=== PATIENT | female | born 1925 | race Caucasian/White ===

== ENCOUNTER 2017-06-05 12:13 | Observation (INO) | payer OTHER ==
[2017-06-05 12:30] VITALS: BMI 33.4
[2017-06-05 13:02] LABS: BASOPHIL 0.7 % (0-2.0); EOSINOPHIL 1.4 % (0-4.5); MCH 29.9 pg (25.7-33.7); MCHC 32.9 g/dl (32.0-36.0); MEAN PLT VOLUME 8.8 fl (7.5-11.1); NEUTROPHILS 72.6 % (42.8-82.8); PLATELET COUNT 201 K/MM3 (134-434); RDW 14.4 % (11.6-15.6)
--- NOTE | 2017-06-05 13:02 | PDOC ---
Attending Attestation - Resident Resident Name: Juan Carrillo - ED Attending Attestation I have performed the following: I have examined & evaluated the patient, The case was reviewed & discussed with the resident, I agree w/resident's findings & plan, Exceptions are as noted - HPI HPI: 06/05/17 13:00 Agree with the resident's HPI as documented in the electronic medical record. - Physicial Exam PE: 06/05/17 13:00 Agree with the resident's physical examination as documented in the electronic medical record. - Medical Decision Making 06/05/17 13:01 89-year-old female with history of Alzheimer's and atrial fibrillationnot on anticoagulants, [facility] resident who presents to the emergency department following a fall during the night with external signs of head trauma and a subsequent syncopal episode this morning. History is limited due to patient's baseline mental status however currently her GCS is 15. Differential diagnosis includes but is not limited to: Traumatic brain injury, contusion, cervical spine injury, cardiac arrhythmia, electrolyte abnormality, infection (pneumonia versus UTI), dehydration, toxic/metabolic derangement. Plan: 1. CT head and cervical spine 2. EKG 3. Labs 4. Chest x-ray 5. Urine analysis 6. Observe and reevaluate <Salome Lui - Last Filed: 06/05/17 13:00> - Resident Resident Name: Juan Carrillo <Juan Carrillo - Last Filed: 06/05/17 16:43> *DC/Admit/Observation/Transfer <Salome Lui - Last Filed: 06/05/17 13:00> - Discharge Dispostion Admit: Yes - Attestations Physician Attestion: 06/05/17 16:41 I, Dr. Juan Carrillo, attest that this document has been prepared under my direction and personally reviewed by me in its entirety. I further attest, that it accurately reflects all work, treatment, procedures and medical decision -making performed by me. <Juan Carrillo - Last Filed: 06/05/17 16:43> Diagnosis at time of Disposition: Syncope Qualifiers: Syncope type: unspecified Qualified Code(s): R55 - Syncope and collapse - Discharge Dispostion Condition at time of disposition: Improved - Patient Instructions - Post Discharge Activity
[2017-06-05 13:26] LABS: ALBUMIN 3.7 g/dl (3.4-5.0); ANION GAP 6 (8-16); BILIRUBIN,TOTAL 0.8 mg/dL (0.2-1.0); CALCIUM 8.9 mg/dL (8.5-10.1); CO2 31 mmol/L (21-32); CREATININE 0.7 mg/dL (0.55-1.02); GLUCOSE,RANDOM 89 mg/dL (74-106); SGOT/AST 20 U/L (15-37); SGPT/ALT 29 U/L (12-78); TOT PROT 7.1 g/dl (6.4-8.2)
[2017-06-05 13:27] LABS: ALK PHOS 41 U/L (45-117)
[2017-06-05 13:29] LABS: TROPONIN I 0.03 ng/ml (0.00-0.05)
[2017-06-05 13:31] LABS: INR 1.12 (0.82-1.09); PROTHROMBIN TIME (PATIENT) 12.4 SEC (9.98-11.88)
--- NOTE | 2017-06-05 13:42 | PDOC ---
History of Present Illness - General Chief Complaint: Syncope/Near Syncope Stated Complaint: Syncope/Near Syncope Time Seen by Provider: 06/05/17 12:19 - History of Present Illness Initial Comments: 06/05/17 13:33 Ms. Hi is a 89 yo F with h/o A-fib, HTN, and Alzheimers dz. who presents with head trauma following a fall. Pt. has baseline dementia and report was obtained via EMS. Per EMS, Ms. Hi was ambulating this morning at 0130, when she slipped and fell in the bathroom. The fall was unwitnessed and she denied LOC, injury, or bleeding. She does not recall the position of landing or the reason she fell. She was assisted to bed by the nursing staff at her resident [facility] facility ( [facility]). At 1000 AM she was assisted out of bed and momentarily lost consciousness for 30-40 seconds. Per EMS, nursing staff did not observe convulsions or direct head trauma. The fall was controlled. Complained of mild neck stiffness. Pt. denies h/o syncope, or triggers of syncope. Pt. denied ISBELL, N/V, fevers/chills, dizziness, weakness, blurry vision, SOB, chest pain, back pain, urinary complaints or GI complaints. Currently not on anticoagulation therapy. Remainder of history was limited d/ t baseline dementia. Past History - Past Medical History Allergies/Adverse Reactions: Allergies Allergy/AdvReac Type Severity Reaction Status Date / Time IV CONTRAST Allergy Uncoded 06/05/17 12:30 Home Medications: Ambulatory Orders Amlodipine Besylate [Norvasc -] 5 mg PO DAILY 08/17/16 Aspirin [ASA -] 81 mg PO DAILY 08/17/16 Donepezil HCl [Aricept -] 10 mg PO DAILY 08/17/16 Nystatin Cream [Mycostatin Cream -] 1 applic TP DAILY 08/17/16 Dementia: Yes HTN: Yes - Psycho/Social/Smoking Cessation Hx Anxiety: No Suicidal Ideation: No Smoking History: Never smoked Have you smoked in the past 12 months: No Information on smoking cessation initiated: No Hx Alcohol Use: No Drug/Substance Use Hx: No Substance Use Type: None Review of Systems - Review of Systems Comments:: 06/05/17 13:43 GENERAL/CONSTITUTIONAL: No fever or chills. No weakness. HEAD, EYES, EARS, NOSE AND THROAT: No change in vision. No ear pain or discharge. No sore throat. CARDIOVASCULAR: No chest pain or shortness of breath RESPIRATORY: No cough, wheezing, or hemoptysis. GASTROINTESTINAL: No nausea, vomiting, diarrhea or constipation. GENITOURINARY: No dysuria, frequency, or change in urination. MUSCULOSKELETAL: No joint or muscle swelling or pain. No neck or back pain. SKIN: No rash NEUROLOGIC: + neck stiffness. No headache, vertigo, loss of consciousness, or change in strength/sensation. ENDOCRINE: No increased thirst. No abnormal weight change HEMATOLOGIC/LYMPHATIC: No anemia, easy bleeding, or history of blood clots. ALLERGIC/IMMUNOLOGIC: No hives or skin allergy. *Physical Exam - Vital Signs Last Vital Signs Temp Pulse Resp BP Pulse Ox 98.4 F 50 L 18 133/52 97 06/05/17 12:17 06/05/17 12:17 06/05/17 12:17 06/05/17 12:17 06/05/17 12:59 - Physical Exam Comments: 06/05/17 13:44 GENERAL: Awake, alert, oriented to person and place. in no acute distress HEAD: + Ecchmyosis over right superior orbit. Normocephalic. EYES: Right superior orbit TTP. PERRLA, EOMI, sclera anicteric, conjunctiva clear. ENT: Absent septal hematoma, septal deviation or perforation. Auricles normal inspection, hearing grossly normal, nares patent, oropharynx clear without exudates. Moist mucosa. Absent tooth fracture or tongue laceration. NECK: Normal ROM, supple, no lymphadenopathy, JVD, or masses LUNGS: No distress, speaks full sentences, clear to auscultation bilaterally HEART: Irregular rate and rhythm, normal S1 and S2, no murmurs, rubs or gallops , peripheral pulses normal and equal bilaterally. ABDOMEN: Soft, nontender, normoactive bowel sounds. No guarding, no rebound. No masses EXTREMITIES: Normal inspection, Normal range of motion, no edema. No clubbing or cyanosis. NEUROLOGICAL: Cranial nerves II through XII grossly intact. Normal speech, normal gait, no focal sensorimotor deficits SKIN: Warm, Dry, normal turgor, no rashes or lesions noted. ED Treatment Course - LABORATORY CBC & Chemistry Diagram: 06/05/17 12:50 06/05/17 12:50 - ADDITIONAL ORDERS Additional order review: 06/05/17 12:50 RBC 4.25 MCV 91.0 MCHC 32.9 RDW 14.4 MPV 8.8 Neutrophils % 72.6 Lymphocytes % 17.6 Monocytes % 7.7 Eosinophils % 1.4 Basophils % 0.7 - RADIOLOGY Radiology Studies Ordered: Category Date Time Status CERVICAL SPINE CT W/O CONTR [CT] Stat CT Scan 06/05/17 12:[address] WITHOUT CONTRAST [CT] Stat CT Scan 06/05/17 12:33 Completed CXRPORT [CHEST X-RAY PORTABLE*] [RAD] Stat Radiology 06/05/17 12:47 Completed Medical Decision Making - Medical Decision Making 06/05/17 13:48 89 yo F with h/o Alzheimers, A-fib, and HTN who presents following recent fall and head trauma. Pt. currently stable and asymptomatic. Mild TTP and ecchymosis present over right superior orbit. Given pt. age, unwitnessed fall, and recent syncopal event there is a concern for syncope. Pt. is bradycardic, and in no respiratory distress, therefore PE is unlikely. D/t to pt risk factors, h/o Afib , and bradycardia there is a suspicion for cardiogenic syncope. There is concern for hematoma and/or SAH in elderly pt. following head trauma. Fall could be attributed to recent infection and altered mental status. R/O pyelonephritis/cystitis. ED course: CBC, CMP, PT/INR UA CXR EKG CT head CT C spine 06/05/17 13:55 CBC- WNlL 06/05/17 14:40 CXR~unremarkable CT HEAD~ Unremarkable. No signs of ischemia, hemmorrhage, or mass CT C-SPINE~ Unremarkable. No signs / evidence of fracture. *DC/Admit/Observation/Transfer Diagnosis at time of Disposition: Syncope Qualifiers: Syncope type: unspecified Qualified Code(s): R55 - Syncope and collapse - Discharge Dispostion Condition at time of disposition: Improved Admit: Yes - Referrals Referrals: Bran Maki [Primary Care Provider] - - Attestations Physician Attestion: 06/05/17 16:12 I, Dr. Juan Carrillo, attest that this document has been prepared under my direction and personally reviewed by me in its entirety. I further attest, that it accurately reflects all work, treatment, procedures and medical decision -making performed by me.
--- NOTE | 2017-06-05 20:15 | HP ---
Admitting History and Physical - Primary Care Physician PCP: Soni Naranjo - Admission Chief Complaint: FALL History of Present Illness: Ms. Hi is a 89 yo F with h/o A-fib, HTN, and Alzheimers dz. who presents with head trauma following a fall. Pt. has baseline dementia and report was obtained via EMS. Per EMS, Ms. Hi was ambulating this morning at 0130, when she slipped and fell in the bathroom. The fall was unwitnessed and she denied LOC, injury, or bleeding. She does not recall the position of landing or the reason she fell. She was assisted to bed by the nursing staff at her resident [place] [facility] ( [facility]). At 1000 AM she was assisted out of bed and momentarily lost consciousness for 30-40 seconds. Per EMS, nursing staff did not observe convulsions or direct head trauma. The fall was controlled. Complained of mild neck stiffness. Pt. denies h/o syncope, or triggers of syncope. Pt. denied ISBELL, N/V, fevers/chills, dizziness, weakness, blurry vision, SOB, chest pain, back pain, urinary complaints or GI complaints. Currently not on anticoagulation therapy. Remainder of history was limited d/ t baseline dementia. TOOK ABOVE HISTORY FROM ER RECORDS PATIENT HAS DEMENTIA - Past Medical History Cardiovascular: Yes: AFIB, HTN - Smoking History Smoking history: Never smoked Have you smoked in the past 12 months: No - Alcohol/Substance Use Hx Alcohol Use: No Home Medications - Allergies Allergies/Adverse Reactions: Allergies Allergy/AdvReac Type Severity Reaction Status Date / Time Iodinated Contrast Media - Allergy Verified 06/05/17 20:20 Oral and IV CONTRAST Allergy Uncoded 06/05/17 12:30 - Home Medications Home Medications: Ambulatory Orders Amlodipine Besylate [Norvasc -] 5 mg PO DAILY 08/17/16 Donepezil HCl [Aricept -] 10 mg PO DAILY 08/17/16 Acetaminophen [Tylenol] 650 mg PO BID PRN 06/05/17 Atorvastatin Ca [Lipitor] 10 mg PO DAILY 06/05/17 Escitalopram Oxalate [Lexapro -] 10 mg PO DAILY 06/05/17 Physical Examination Vital Signs: Vital Signs Temperature 98.4 F 06/05/17 18:55 Pulse Rate 50 L 06/05/17 18:55 Respiratory Rate 20 06/05/17 18:55 Blood Pressure 151/53 06/05/17 18:55 O2 Sat by Pulse Oximetry (%) 97 06/05/17 17:39 Constitutional: Yes: No Distress HENT: Yes: Other (bruise R forehead and around R eye and left eye) Neck: Yes: Supple Cardiovascular: Yes: Regular Rate and Rhythm Respiratory: Yes: CTA Bilaterally Gastrointestinal: Yes: Normal Bowel Sounds Extremities: Yes: WNL Edema: No Neurological: Yes: Alert Problem List - Problems (1) Syncope Code(s): R55 - SYNCOPE AND COLLAPSE Qualifiers: Syncope type: unspecified Qualified Code(s): R55 - Syncope and collapse (2) Dementia Assessment/Plan: on meds stable Code(s): F03.90 - UNSPECIFIED DEMENTIA WITHOUT BEHAVIORAL DISTURBANCE Qualifiers: Dementia type: Alzheimer's disease Alzheimer's disease onset: unspecified onset Dementia behavioral disturbance: without behavioral disturbance Qualified Code(s): G30.9 - Alzheimer's disease, unspecified; F02.80 - Dementia in other diseases classified elsewhere without behavioral disturbance (3) HTN (hypertension) Assessment/Plan: on meds stable Code(s): I10 - ESSENTIAL (PRIMARY) HYPERTENSION Qualifiers: Hypertension type: essential hypertension Qualified Code(s): I10 - Essential (primary) hypertension (4) Hypercholesterolemia Assessment/Plan: on meds Code(s): E78.00 - PURE HYPERCHOLESTEROLEMIA, UNSPECIFIED (5) Right bundle branch block (RBBB) Assessment/Plan: cardiology on board Code(s): I45.10 - UNSPECIFIED RIGHT BUNDLE-BRANCH BLOCK Assessment/Plan Laboratory Tests 06/05/17 06/05/17 06/05/17 12:50 12:50 12:50 WBC 9.0 RBC 4.25 Hgb 12.7 Hct 38.6 MCV 91.0 MCH 29.9 MCHC 32.9 RDW 14.4 Plt Count 201 MPV 8.8 Neutrophils % 72.6 Lymphocytes % 17.6 Monocytes % 7.7 Eosinophils % 1.4 Basophils % 0.7 INR 1.12 Sodium 138 Potassium 4.4 Chloride 101 Carbon Dioxide 31 Anion Gap 6 L BUN 19 H Creatinine 0.7 Creat Clearance w eGFR > 60 Random Glucose 89 Calcium 8.9 Total Bilirubin 0.8 AST 20 ALT 29 Alkaline Phosphatase 41 L Creatine Kinase Troponin I Total Protein 7.1 Albumin 3.7 Blood Type Antibody Screen 06/05/17 06/05/17 12:50 12:59 WBC RBC Hgb Hct MCV MCH MCHC RDW Plt Count MPV Neutrophils % Lymphocytes % Monocytes % Eosinophils % Basophils % INR Sodium Potassium Chloride Carbon Dioxide Anion Gap BUN Creatinine Creat Clearance w eGFR Random Glucose Calcium Total Bilirubin AST ALT Alkaline Phosphatase Creatine Kinase 64 Troponin I 0.03 Total Protein Albumin Blood Type A POSITIVE Antibody Screen Negative Active Medications Generic Name Dose Route Start Last Admin Trade Name Freq PRN Reason Stop Dose Admin Alprazolam 0.25 mg 06/05/17 21:21 06/06/17 01:38 Xanax - PO 0.25 mg Q6H PRN Administration ANXIETY Amlodipine Besylate 5 mg 06/06/17 10:00 06/06/17 10:00 Norvasc - PO 5 mg DAILY PEGGY Administration Atorvastatin Calcium 10 mg 06/06/17 10:00 06/06/17 10:00 Lipitor - PO 10 mg DAILY PEGGY Administration Donepezil HCl 10 mg 06/06/17 10:00 06/06/17 10:00 Aricept - PO 10 mg DAILY PEGGY Administration Escitalopram Oxalate 10 mg 06/06/17 10:00 06/06/17 10:00 Lexapro - PO 10 mg DAILY PEGGY Administration
[2017-06-05] MEDS ORDERED: ALPRAZolam 0.25 MG TABLET PO PRN (21:21)
[2017-06-06 08:03] LABS: URINE APPEARANCE CLEAR; URINE BILIRUBIN NEGATIVE (NEGATIVE); URINE BLOOD NEGATIVE (NEGATIVE); URINE COLOR LTYELLOW; URINE GLUCOSE (UA) NEGATIVE (NEGATIVE); URINE KETONE TRACE (NEGATIVE); URINE LEUK ESTERASE NEGATIVE (NEGATIVE); URINE NITRITE NEGATIVE (NEGATIVE); URINE PROTEIN NEGATIVE (NEGATIVE)
[2017-06-06] MEDS: ATORVASTATIN CA 10 MG TABLET (FP) PO SCH (10:00)
[2017-06-06] MEDS: DONEPEZIL HCL 10 MG TABLET (FP) PO SCH (10:00)
[2017-06-06] MEDS: ESCITALOPRAM OXALATE 10 MG TABLET (FP) PO SCH (10:00)
[2017-06-06] MEDS: amLODIPine BESYLATE 5 MG TABLET (FP) PO SCH (10:00)
--- NOTE | 2017-06-06 10:14 | CON.NEURO ---
Consult Consult Specialty:: Neurology Referred by:: brandon Reason for Consultation:: syncope - History of Present Illness Chief Complaint: syncope History of Present Illness: Ms. Hi is a 89 yo F with h/o A-fib, HTN, and Alzheimers dz. who presents with head trauma following a fall. Pt. has baseline dementia and report was obtained via EMS. Per EMS, Ms. Hi was ambulating this morning at 0130, when she slipped and fell in the bathroom. The fall was unwitnessed and she denied LOC, injury, or bleeding. She does not recall the position of landing or the reason she fell. She was assisted to bed by the nursing staff at her resident [facility] ( [facility]). At 1000 AM she was assisted out of bed and momentarily lost consciousness for 30-40 seconds. Per EMS, nursing staff did not observe convulsions or direct head trauma. The fall was controlled. Complained of mild neck stiffness. Pt. denies h/o syncope, or triggers of syncope. Pt. denied ISBELL, N/V, fevers/chills, dizziness, weakness, blurry vision, SOB, chest pain, back pain, urinary complaints or GI complaints. Currently not on anticoagulation therapy. Remainder of history was limited d/ t baseline dementia. 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 Cardio/Vascular: Yes: AFIB, HTN ...: No - Alcohol/Substance Use Hx Alcohol Use: No - Smoking History Smoking history: Never smoked Have you smoked in the past 12 months: No Home Medications - Allergies Allergies/Adverse Reactions: Allergies Allergy/AdvReac Type Severity Reaction Status Date / Time Iodinated Contrast Media - Allergy Verified 06/05/17 20:20 Oral and IV CONTRAST Allergy Uncoded 06/05/17 12:30 - Home Medications Home Medications: Ambulatory Orders Amlodipine Besylate [Norvasc -] 5 mg PO DAILY 08/17/16 Donepezil HCl [Aricept -] 10 mg PO DAILY 08/17/16 Acetaminophen [Tylenol] 650 mg PO BID PRN 06/05/17 Atorvastatin Ca [Lipitor] 10 mg PO DAILY 06/05/17 Escitalopram Oxalate [Lexapro -] 10 mg PO DAILY 06/05/17 Physical Exam-Neuro Vital Signs: Vital Signs Temperature 97.5 F L 06/06/17 06:00 Pulse Rate 55 L 06/06/17 06:00 Respiratory Rate 16 06/06/17 06:00 Blood Pressure 150/57 06/06/17 06:00 O2 Sat by Pulse Oximetry (%) 97 06/05/17 23:00 Constitutional: Yes: Calm Neck: Yes: WNL Labs: INR, PTT INR 1.12 (0.82-1.09) 06/05/17 12:50 - Neuro Exam Level Of Consciousness: Yes: Alert (patient didn't respond to questioning though she was alert), Oriented to Person Eyes: Yes: PERRL Speech: Other (clear, though didn't wish to be bothered) Cranial Nerves II-XII Intact: Yes DTR's: 0 Left Achilles, 0 Right Achilles, 2+ Left Bicep, 2+ Right Bicep, 2+ Left Tricep, 2+ Right Tricep, 2+ Left Brachioradialis, 2+ Right Brachioradialis Babinski: Absent Movement Disorders: Other (none) Motor Strength: 5/5: Right Arm, Left Leg, Left Arm, Right Leg (not fully cooperative, but moves all limbs well) Gait: Deferred NIH Stroke Scale - Total Score NIH Stroke Scale Score: 0 Imaging - Results Cat Scan: Report Reviewed, Image Reviewed (atrophy; white matter ischemic changes; intracranial, intravascular calcifications; no acute infaraction, bleed or signs of trauma) Other: Report Reviewed (ct neck ok) Problem List - Problems (1) Syncope Code(s): R55 - SYNCOPE AND COLLAPSE Qualifiers: Syncope type: unspecified Qualified Code(s): R55 - Syncope and collapse Assessment/Plan I don't think that this event was likely neurogenic. I see no signs of acute infarction or tia. I don't see suggestion of seizure and the fall had no apparent neurologic sequellae. We'll sign off. No further inpatient workup recommended. I have no objection to discharge. Thank you.
--- NOTE | 2017-06-06 12:21 | CON.CARD ---
Consult Consult Specialty:: Cardiology Referred by:: Dr. Naranjo Reason for Consultation:: Cardiac evaluation - History of Present Illness Chief Complaint: Status fall with questiable syncope History of Present Illness: Patient is an 89 year old female form SNF with underlying history of paroxysmal atrial fibrillation currently appears to be in sinus rhythm with RBBB and organic brain syndrome/dementia (Alzheimers) who presents after a mechanical fall resulting in facial/head trauma. She has extensive echymosis around her orbits and nasal ridge. According to record she slipped and fell in the bathroom and the fall was unwitnessed. It does not appear that she had loss of consciousness. She was assisted to bed by the nursing staff the SNF. She had further event where she briefly may have lost consciousness. No seizure activity was noted. She denies chest pain, shortness of breath or palpitations. No fever or chills. No GI or urinary complaints. She was not on anticoagulation therapy. 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 Cardio/Vascular: Yes: AFIB (Paroxysmal), HTN ...: No - Alcohol/Substance Use Hx Alcohol Use: No - Smoking History Smoking history: Never smoked Have you smoked in the past 12 months: No Home Medications - Allergies Allergies/Adverse Reactions: Allergies Allergy/AdvReac Type Severity Reaction Status Date / Time Iodinated Contrast Media - Allergy Verified 06/05/17 20:20 Oral and IV CONTRAST Allergy Uncoded 06/05/17 12:30 - Home Medications Home Medications: Ambulatory Orders Amlodipine Besylate [Norvasc -] 5 mg PO DAILY 08/17/16 Donepezil HCl [Aricept -] 10 mg PO DAILY 08/17/16 Acetaminophen [Tylenol] 650 mg PO BID PRN 06/05/17 Atorvastatin Ca [Lipitor] 10 mg PO DAILY 06/05/17 Escitalopram Oxalate [Lexapro -] 10 mg PO DAILY 06/05/17 Family Disease History - Family Disease History Family History: Unable to Obtain Review of Systems - Review of Systems Cardiovascular: denies: Chest Pain, Palpitations, Shortness of Breath Respiratory: denies: Cough, Hemoptysis, Orthopnea, PND Gastrointestinal: denies: Abdominal Pain, Constipation, Diarrhea, Melena, Nausea , Rectal Bleeding, Vomiting Neurological: reports: Confusion, Syncope, Unsteady Gait. denies: Seizure Vital Signs: Vital Signs Temperature 97.8 F 06/06/17 10:00 Pulse Rate 58 L 06/06/17 10:00 Respiratory Rate 18 06/06/17 10:00 Blood Pressure 144/60 06/06/17 10:00 O2 Sat by Pulse Oximetry (%) 96 06/06/17 07:00 Respiratory: Yes: Diminished Gastrointestinal: Yes: Normal Bowel Sounds, Soft. No: Tenderness Cardiovascular: Yes: Regular Rate and Rhythm JVD: No Carotid Bruit: No PMI: Non-Displaced Heart Sounds: Yes: S1, S2 Murmur: Yes: Systolic Murmur, Grade 1 Edema: No - Other Data Labs, Other Data: INR, PTT INR 1.12 (0.82-1.09) 06/05/17 12:50 Laboratory Results - last 24 hr 06/06/17 06:45 Urine Color Ltyellow Urine Appearance Clear Urine pH 7.0 Urine Protein Negative Urine Glucose (UA) Negative Urine Ketones Trace H Urine Blood Negative Urine Nitrite Negative Urine Bilirubin Negative Urine Urobilinogen 2.0 H Ur Leukocyte Esterase Negative CBCD WBC 9.0 K/mm3 (4.0-10.0) 06/05/17 12:50 RBC 4.25 M/mm3 (3.60-5.2) 06/05/17 12:50 Hgb 12.7 GM/dL (10.7-15.3) 06/05/17 12:50 Hct 38.6 % (32.4-45.2) 06/05/17 12:50 MCV 91.0 fl (80-96) 06/05/17 12:50 MCHC 32.9 g/dl (32.0-36.0) 06/05/17 12:50 RDW 14.4 % (11.6-15.6) 06/05/17 12:50 Plt Count 201 K/MM3 (134-434) 06/05/17 12:50 MPV 8.8 fl (7.5-11.1) 06/05/17 12:50 CMP Sodium 138 mmol/L (136-145) 06/05/17 12:50 Potassium 4.4 mmol/L (3.5-5.1) 06/05/17 12:50 Chloride 101 mmol/L (98-107) 06/05/17 12:50 Carbon Dioxide 31 mmol/L (21-32) 06/05/17 12:50 Anion Gap 6 (8-16) L 06/05/17 12:50 BUN 19 mg/dL (7-18) H 06/05/17 12:50 Creatinine 0.7 mg/dL (0.55-1.02) 06/05/17 12:50 Creat Clearance w eGFR > 60 (>60) 06/05/17 12:50 Random Glucose 89 mg/dL (74-106) 06/05/17 12:50 Calcium 8.9 mg/dL (8.5-10.1) 06/05/17 12:50 Total Bilirubin 0.8 mg/dL (0.2-1.0) 06/05/17 12:50 AST 20 U/L (15-37) 06/05/17 12:50 ALT 29 U/L (12-78) 06/05/17 12:50 Alkaline Phosphatase 41 U/L (45-117) L 06/05/17 12:50 Total Protein 7.1 g/dl (6.4-8.2) 06/05/17 12:50 Albumin 3.7 g/dl (3.4-5.0) 06/05/17 12:50 CARDIAC ENZYMES Creatine Kinase 64 IU/L (26-192) 06/05/17 12:50 Troponin I 0.03 ng/ml (0.00-0.05) 06/05/17 12:50 Sinus rhythm with RBBB Echo: Pending Imaging - Results Chest X-ray: Report Reviewed (Unremarkable) Cat Scan: Report Reviewed (Head CT unremarkable) EKG: Report Reviewed Problem List - Problems (1) Dementia Code(s): F03.90 - UNSPECIFIED DEMENTIA WITHOUT BEHAVIORAL DISTURBANCE Qualifiers: Dementia type: Alzheimer's disease Alzheimer's disease onset: unspecified onset Dementia behavioral disturbance: without behavioral disturbance Qualified Code(s): G30.9 - Alzheimer's disease, unspecified; F02.80 - Dementia in other diseases classified elsewhere without behavioral disturbance (2) Syncope Code(s): R55 - SYNCOPE AND COLLAPSE Qualifiers: Syncope type: unspecified Qualified Code(s): R55 - Syncope and collapse (3) HTN (hypertension) Code(s): I10 - ESSENTIAL (PRIMARY) HYPERTENSION Qualifiers: Hypertension type: essential hypertension Qualified Code(s): I10 - Essential (primary) hypertension (4) Hypercholesterolemia Code(s): E78.00 - PURE HYPERCHOLESTEROLEMIA, UNSPECIFIED (5) Right bundle branch block (RBBB) Code(s): I45.10 - UNSPECIFIED RIGHT BUNDLE-BRANCH BLOCK Assessment/Plan 1. Mechanical fall and episode of possible syncope, etiology to be determined resulting in facial contusion 2. Organic brain syndrome/Alzheimer's dementia 3. Paroxysmal atrial fibrillation currently in sinus rhythm and RBBB 4. Hypertension PLAN: 1. Continue Norvasc as BP tolerated - uptitrate as tolerated 2. Continue Lipitor 3. Transthoracic echocardiography to assess LV/RV and valvular function 4. 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 Check TFT and lipid panel Further plans are to follow Saul Stafford MD
--- NOTE | 2017-06-06 16:11 | PN ---
Progress Note, Physician History of Present Illness: stable - Current Medication List Current Medications: Active Medications Alprazolam (Xanax -) 0.25 mg PO Q6H PRN PRN Reason: ANXIETY Last Admin: 06/06/17 01:38 Dose: 0.25 mg Amlodipine Besylate (Norvasc -) 5 mg PO DAILY [facility] Last Admin: 06/06/17 10:00 Dose: 5 mg Atorvastatin Calcium (Lipitor -) 10 mg PO DAILY [facility] Last Admin: 06/06/17 10:00 Dose: 10 mg Donepezil HCl (Aricept -) 10 mg PO DAILY [facility] Last Admin: 06/06/17 10:00 Dose: 10 mg Escitalopram Oxalate (Lexapro -) 10 mg PO DAILY [facility] Last Admin: 06/06/17 10:00 Dose: 10 mg - Objective Vital Signs: Vital Signs Temperature 97.8 F 06/06/17 10:00 Pulse Rate 58 L 06/06/17 10:00 Respiratory Rate 18 06/06/17 15:00 Blood Pressure 144/60 06/06/17 10:00 O2 Sat by Pulse Oximetry (%) 96 06/06/17 15:00 Constitutional: Yes: Calm HENT: Yes: Other (bruise around R eye AND LEFT EYE) Neck: Yes: Supple Cardiovascular: Yes: Regular Rate and Rhythm Respiratory: Yes: CTA Bilaterally Gastrointestinal: Yes: Normal Bowel Sounds Extremities: Yes: WNL Neurological: Yes: Alert Labs: INR, PTT INR 1.12 (0.82-1.09) 06/05/17 12:50 Problem List - Problems (1) Syncope Assessment/Plan: doing well tele monitoring cardiology on board monitpr bp continue home meds Code(s): R55 - SYNCOPE AND COLLAPSE Qualifiers: Syncope type: unspecified Qualified Code(s): R55 - Syncope and collapse (2) Dementia Assessment/Plan: on meds Code(s): F03.90 - UNSPECIFIED DEMENTIA WITHOUT BEHAVIORAL DISTURBANCE Qualifiers: Dementia type: Alzheimer's disease Alzheimer's disease onset: unspecified onset Dementia behavioral disturbance: without behavioral disturbance Qualified Code(s): G30.9 - Alzheimer's disease, unspecified; F02.80 - Dementia in other diseases classified elsewhere without behavioral disturbance
--- NOTE | 2017-06-06 16:49 | EKG ---
Test Reason : Blood Pressure : / mmHG Vent. Rate : 052 BPM Atrial Rate : 052 BPM P-R Int : 142 ms QRS Dur : 126 ms QT Int : 506 ms P-R-T Axes : -26 -18 021 degrees QTc Int : 470 ms SINUS BRADYCARDIA RIGHT BUNDLE BRANCH BLOCK MINIMAL VOLTAGE CRITERIA FOR LVH, MAY BE NORMAL VARIANT ABNORMAL ECG WHEN COMPARED WITH ECG OF 20-OCT-2002 11:14, VENT. RATE HAS DECREASED BY 44 BPM RIGHT BUNDLE BRANCH BLOCK IS NOW PRESENT CRITERIA FOR INFERIOR INFARCT ARE NO LONGER PRESENT REPEAT INDICATED Confirmed by ABDULKADIR MARTELL MD ([id number] on 06/06/2017 4:48:43 PM Referred By: Confirmed By:ABDULKADIR MARTELL MD
[2017-06-07] MEDS: DONEPEZIL HCL 10 MG TABLET (FP) PO SCH (09:21)
[2017-06-07] MEDS: ATORVASTATIN CA 10 MG TABLET (FP) PO SCH (09:21)
[2017-06-07] MEDS: ESCITALOPRAM OXALATE 10 MG TABLET (FP) PO SCH (09:21)
[2017-06-07] MEDS: amLODIPine BESYLATE 5 MG TABLET (FP) PO SCH ×2 (09:22→10:00)
[2017-06-07] MEDS ORDERED: ASPIRIN COATED 81 MG TABLET.EC PO SCH (10:00)
--- NOTE | 2017-06-07 12:04 | DS ---
Physical Examination Vital Signs: Vital Signs Temperature 98.4 F 06/07/17 10:00 Pulse Rate 60 06/07/17 10:00 Respiratory Rate 20 06/07/17 10:00 Blood Pressure 134/49 06/07/17 10:00 O2 Sat by Pulse Oximetry (%) 96 06/06/17 21:11 Constitutional: Yes: No Distress HENT: Yes: Other (bruises on face healing) Cardiovascular: Yes: Regular Rate and Rhythm Respiratory: Yes: CTA Bilaterally Gastrointestinal: Yes: Normal Bowel Sounds Extremities: Yes: WNL Neurological: Yes: Alert Discharge Summary Reason For Visit: SYNCOPE Current Active Problems Dementia (Acute) HTN (hypertension) (Acute) Hypercholesterolemia (Acute) Right bundle branch block (RBBB) (Acute) Syncope (Acute) Condition: Improved - Home Medications Comprehensive Discharge Medication List: Ambulatory Orders Amlodipine Besylate [Norvasc -] 5 mg PO DAILY 08/17/16 Donepezil HCl [Aricept -] 10 mg PO DAILY 08/17/16 Acetaminophen [Tylenol] 650 mg PO BID PRN 06/05/17 Atorvastatin Ca [Lipitor] 10 mg PO DAILY 06/05/17 Escitalopram Oxalate [Lexapro -] 10 mg PO DAILY 06/05/17 dc when cleared by cardiology
--- NOTE | 2017-06-07 12:18 | PN ---
Progress Note, Physician History of Present Illness: No further falls, denies near or true syncope. No events on telemetry. - Current Medication List Current Medications: Active Medications Alprazolam (Xanax -) 0.25 mg PO Q6H PRN PRN Reason: ANXIETY Last Admin: 06/06/17 01:38 Dose: 0.25 mg Amlodipine Besylate (Norvasc -) 5 mg PO DAILY [facility] Last Admin: 06/07/17 10:00 Dose: Not Given Aspirin (Ecotrin -) 81 mg PO DAILY [facility] Last Admin: 06/07/17 09:22 Dose: 81 mg Atorvastatin Calcium (Lipitor -) 10 mg PO DAILY [facility] Last Admin: 06/07/17 09:21 Dose: 10 mg Donepezil HCl (Aricept -) 10 mg PO DAILY [facility] Last Admin: 06/07/17 09:21 Dose: 10 mg Escitalopram Oxalate (Lexapro -) 10 mg PO DAILY [facility] Last Admin: 06/07/17 09:21 Dose: 10 mg - Objective Vital Signs: Vital Signs Temperature 98.4 F 06/07/17 10:00 Pulse Rate 60 06/07/17 10:00 Respiratory Rate 20 06/07/17 10:00 Blood Pressure 134/49 06/07/17 10:00 O2 Sat by Pulse Oximetry (%) 96 06/06/17 21:11 Constitutional: Yes: No Distress, Calm Neck: Yes: Supple Cardiovascular: Yes: Regular Rate and Rhythm Respiratory: Yes: Regular, CTA Bilaterally Gastrointestinal: Yes: Normal Bowel Sounds, Soft Edema: No Labs: INR, PTT INR 1.12 (0.82-1.09) 06/05/17 12:50 - ....Imaging EKG: Report Reviewed (Tele: SB without pauses) Problem List - Problems (1) Dementia Code(s): F03.90 - UNSPECIFIED DEMENTIA WITHOUT BEHAVIORAL DISTURBANCE Qualifiers: Dementia type: Alzheimer's disease Alzheimer's disease onset: unspecified onset Dementia behavioral disturbance: without behavioral disturbance Qualified Code(s): G30.9 - Alzheimer's disease, unspecified; F02.80 - Dementia in other diseases classified elsewhere without behavioral disturbance (2) HTN (hypertension) Code(s): I10 - ESSENTIAL (PRIMARY) HYPERTENSION Qualifiers: Hypertension type: essential hypertension Qualified Code(s): I10 - Essential (primary) hypertension (3) Hypercholesterolemia Code(s): E78.00 - PURE HYPERCHOLESTEROLEMIA, UNSPECIFIED (4) Right bundle branch block (RBBB) Code(s): I45.10 - UNSPECIFIED RIGHT BUNDLE-BRANCH BLOCK (5) Status post fall Code(s): Z91.81 - HISTORY OF FALLING (6) Paroxysmal atrial fibrillation Code(s): I48.0 - PAROXYSMAL ATRIAL FIBRILLATION Assessment/Plan 1. Mechanical fall and episode of possible syncope, resulting in facial contusion 2. Organic brain syndrome/Alzheimer's dementia 3. Paroxysmal atrial fibrillation currently in sinus rhythm and RBBB not on a/c due to fall risk 4. Hypertension 5. Hyperlipidemia PLAN: 1. Continue Norvasc 5 qd as BP tolerated - uptitrate as tolerated 2. Continue Lipitor 10 qd, ASA 81 qd 3. F/u transthoracic echocardiography to assess LV/RV and valvular function
[2017-06-07 14:50] VITALS: BP 114/54; PULSE 64
[2017-06-07 18:30] VITALS: TEMP 98.5
== END 2017-06-07 18:28 ==
LOC: JER 12:13 → JERBED 16:43 → J5S 18:35 → J4S 21:40
PROVIDERS: ADMIT Internal Medicine; ATTEND Internal Medicine
DX: R55 Syncope and collapse (principal); I10 Essential (primary) hypertension; I48.0 Paroxysmal atrial fibrillation; I45.10 Unspecified right bundle-branch block; G30.9 Alzheimer's disease, unspecified; F02.80 Dementia in other diseases classified elsewhere, unspecified severity, without behavioral disturbance, psychotic disturbance, mood disturbance, and anxiety; E78.00 Pure hypercholesterolemia, unspecified; Z79.82 Long term (current) use of aspirin; Z91.041 Radiographic dye allergy status; S00.12XA Contusion of left eyelid and periocular area, initial encounter; S00.11XA Contusion of right eyelid and periocular area, initial encounter; W01.0XXA Fall on same level from slipping, tripping and stumbling without subsequent striking against object, initial encounter; Z91.81 History of falling; Y93.89 Activity, other specified; Y92.121 Bathroom in nursing home as the place of occurrence of the external cause
CPT/HCPCS: 36415; 70450-TC; 71010-TC; 72125-TC; 80053; 81003; 82550; 84484; 85025; 85610; 86850; 86900; 86901; 93005; 93010; 93306-TC; 99284-25; G0378